=== PATIENT | male | born 1990 | race Caucasian/White ===

== ENCOUNTER 2018-10-26 10:44 | Emergency (ER) | payer BC ==
[2018-10-26 10:54] VITALS: BP 115/77
[2018-10-26 11:20] LABS: Influenza A Molecular NEGATIVE (Negative); Influenza B Molecular NEGATIVE (Negative)
--- NOTE | 2018-10-26 11:35 | UC ---
Throat Pain/Nasal Shankar HPI - HPI Summary HPI Summary: 28 year old male with PMH + for ADHD, on HTN medicatino due to med side effect, presents with cough, nasal congestion 2 days ago, fever x 2 days tmax 101, decreased appetite, no N/V/ D, no prior illnesses, denies GI upset. + neck pain but chronic for patient, does not feel made worse. no SOB. 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 - Onset/Duration: Sudden Onset, Lasting Days Severity: Moderate Pain Intensity: 4 Pain Scale Used: 0-10 Numeric Cough: Productive Associated Signs & Symptoms: Positive: Sinus Discomfort, Nasal Discharge, Fever - Allergies/Home Medications Allergies/Adverse Reactions: Allergies Allergy/AdvReac Type Severity Reaction Status Date / Time acetaminophen [From Vicodin] Allergy Flushing Verified 10/26/18 10:54 hydrocodone [From Vicodin] Allergy Flushing Verified 10/26/18 10:54 hydromorphone [From Dilaudid] Allergy Flushing Verified 10/26/18 10:54 morphine Allergy burning Verified 10/26/18 10:54 sensation Home Medications: Home Medications Adderall 20 mg Tablet 20 mg PO DAILY 10/26/18 [History Confirmed 10/26/18] Lisinopril TAB* [Prinivil TAB 10 MG*] 10 mg PO DAILY 10/26/18 [History Confirmed 10/26/18] PMH/Surg Hx/FS Hx/Imm Hx Previously Healthy: Yes - Surgical History Surgical History: Yes Surgery Procedure, Year, and Place: tonsilectomy - Family History Known Family History: Positive: Unknown, Cardiac Disease - GRANDMOTHER - [place] - Social History Alcohol Use: Occasionally Alcohol Amount: 1 GLASS WINE TONIGHT Substance Use Type: None Smoking Status (MU): Never Smoked Tobacco Review of Systems All Other Systems Reviewed And Are Negative: Yes Constitutional: Positive: Fever, Chills, Fatigue Skin: Positive: Negative Eyes: Positive: Negative ENT: Positive: Nasal Discharge, Sinus Congestion, Sinus Pain/Tenderness Respiratory: Positive: Cough Cardiovascular: Positive: Negative Gastrointestinal: Positive: Negative Genitourinary: Positive: Negative Motor: Positive: Negative Neurovascular: Positive: Negative Musculoskeletal: Positive: Negative Neurological: Positive: Negative Psychological: Positive: Anxious Is Patient Immunocompromised?: No Physical Exam Triage Information Reviewed: Yes Appearance: No Pain Distress, Well-Nourished, Ill-Appearing - modeate Vital Signs: Initial Vital Signs Temp 99 F 10/26/18 10:50 Pulse 100 10/26/18 10:50 Resp 20 10/26/18 10:50 BP 115/77 10/26/18 10:50 Pulse Ox 97 10/26/18 10:50 Vital Signs Reviewed: Yes Eyes: Positive: Conjunctiva Clear ENT: Positive: Pharynx normal, TMs normal - mild fluid behind TMs, no redness, Sinus tenderness - fraontal, Uvula midline. Negative: Tonsillar swelling, Tonsillar exudate Neck: Positive: Supple, Nontender, Enlarged Nodes @ - submand b/l. Negative: Nuchal Rigidity Respiratory: Positive: Chest non-tender, Lungs clear, Normal breath sounds, No respiratory distress, No accessory muscle use. Negative: Crackles, Rhonchi, Stridor, Wheezing Cardiovascular: Positive: RRR, No Murmur Neurological Exam: Normal Psychological Exam: Normal Skin Exam: Normal Throat Pain/Nasal Course/Dx - Course Course Of Treatment: rapid flu negative. antibiotics for sinusitis, symptomatic treatment - Differential Dx/Diagnosis Differential Diagnosis/HQI/PQRI: Sinusitis Provider Diagnosis: Sinusitis Discharge - Sign-Out/Discharge Documenting (check all that apply): Patient Departure All imaging exams completed and their final reports reviewed: No Studies - Discharge Plan Condition: Good Disposition: HOME Prescriptions: Azithromyxin BEATRIZ (NF) [Z-Beatriz (Zithromax) 250 mg tabs #6] 2 tab PO .TODAY, THEN 1 DAILY #6 tab Patient Education Materials: Sinusitis (ED) Referrals: Linette Kay PA [Primary Care Provider] - Additional Instructions: - Increase fluid intake - Humidifier at night to help with cough - Over the counter cough medication as needed - Over the counter/ Antihistamines for congestion - Motrin/ ibuprofen as needed for headache/ body aches - Antibiotics as prescribed - God hygiene to prevent spread - Billing Disposition and Condition Condition: GOOD Disposition: Home
== END 2018-10-26 11:35 | disposition home or self-care (01) ==
LOC: UCEAST 10:44
DX: J32.9 Chronic sinusitis, unspecified (principal); I10 Essential (primary) hypertension; F90.9 Attention-deficit hyperactivity disorder, unspecified type; Z88.5 Allergy status to narcotic agent; Z88.8 Allergy status to other drugs, medicaments and biological substances; Z79.899 Other long term (current) drug therapy
CPT/HCPCS: 99212; G0463

== ENCOUNTER 2024-03-29 19:00 | Inpatient (IN) ==
[2024-03-29 20:03] LABS: ABS Eosinophils 0.1 10^3/uL (0.0-0.5); ABS Lymphocytes 2.2 10^3/uL (1.0-4.8); ABS Monocytes 0.9 10^3/uL (0.0-1.1); ABS Nucleated RBC 0.01 10^3/ul; Hematocrit 44.4 % (38-53); Hemoglobin 15.1 g/dL (13.2-16.3); Lymphocyte % 26.4 %; Mean Corpuscular Hemoglobin 30.2 pg (27-33); Mean Corpuscular Hgb Conc 34.1 g/dL (31-36); Mean Corpuscular Volume 88.7 fL (80-97); Mean Platelet Volume 9.4 fL (7.5-11.2); Nucleated Red Blood Cells % 0.1 %/100WBC (0.0-0.8); Platelet Count 248 10^3/uL (150-450); Red Cell Distribution Width 12.9 % (12-17); White Blood Count 8.2 10^3/uL (3.6-10.2)
[2024-03-29 20:55] LABS: Albumin 4.6 g/dL (3.2-5.2); Albumin/Globulin Ratio 1.8 (1-3); C Reactive Protein 8.78 mg/L (<8.01); Calcium 9.5 mg/dL (8.6-10.3); Creatinine, Serum 1.18 mg/dL (0.67-1.17); Globulin 2.6 g/dL (2-4); Potassium 4.2 mmol/L (3.5-5.0); Total Bilirubin 0.6 mg/dL (0.2-1.0); Total Protein 7.2 g/dL (6.4-8.9); eGFR CKD-EPI 84.1 (>60)
[2024-03-29] MEDS: Lactated Ringers 1000 ml BAG 1,000 ML IV ONE (23:38)
[2024-03-29] MEDS: fentaNYL 100 mcg/2 ml 50 MCG/ML VIAL IV SLOW PU ONE (23:38)
[2024-03-29] MEDS: Ondansetron 4 mg VIAL 2 MG/ML 2 ml VIAL IV ONE (23:38)
[2024-03-30 00:01] LABS: Urine Appearance Clear; Urine Bilirubin Negative (Negative); Urine Blood Negative (Negative); Urine Color Yellow; Urine Glucose Negative (Negative); Urine Ketones Negative (Negative); Urine Nitrite Negative (Negative); Urine Protein Trace (Negative); Urine Specific Gravity 1.037 (1.002-1.030); Urine Urobilinogen Negative (Negative)
[2024-03-30] MEDS: Iohexol 300 (CONTRAST) 10 ML SDV IV ONE (00:40)
[2024-03-30] MEDS: Lactated Ringers 1000 ml BAG 1,000 ML IV ONE (04:12)
[2024-03-30] MEDS: Ondansetron 4 mg VIAL 2 MG/ML 2 ml VIAL IV ONE (04:12)
[2024-03-30] MEDS ORDERED: Ondansetron 4 mg VIAL 2 MG/ML 2 ml VIAL IV PRN (05:30)
[2024-03-30] MEDS: Lactated Ringers 1000 ml BAG 1,000 ML IV SCH ×2 (06:10→12:18)
[2024-03-30 08:55] LABS: ABS Eosinophils 0.1 10^3/uL (0.0-0.5); ABS Lymphocytes 1.7 10^3/uL (1.0-4.8); ABS Monocytes 0.7 10^3/uL (0.0-1.1); ABS Neutrophils 5.4 10^3/uL (1.5-7.6); ABS Nucleated RBC 0.01 10^3/ul; Eosinophil % 1.2 %; Hematocrit 38.8 % (38-53); Hemoglobin 13.6 g/dL (13.2-16.3); Lymphocyte % 21.8 %; Mean Corpuscular Hemoglobin 30.9 pg (27-33); Mean Corpuscular Hgb Conc 35.1 g/dL (31-36); Mean Corpuscular Volume 88.1 fL (80-97); Mean Platelet Volume 9.3 fL (7.5-11.2); Nucleated Red Blood Cells % 0.1 %/100WBC (0.0-0.8); Platelet Count 195 10^3/uL (150-450); Red Cell Distribution Width 12.7 % (12-17); White Blood Count 7.9 10^3/uL (3.6-10.2)
[2024-03-30 09:30] LABS: Calcium 8.5 mg/dL (8.6-10.3); Creatinine, Serum 1.02 mg/dL (0.67-1.17); Potassium 4.5 mmol/L (3.5-5.0); eGFR CKD-EPI 100.1 (>60)
[2024-03-30] MEDS: Pantoprazole VIAL 40 MG VIAL IV SCH (10:34)
[2024-03-30] MEDS: Lisdexamfetamine 10 mg CAP(NF) PO SCH (10:34)
[2024-03-30] MEDS: Fluticasone NASAL SPRAY 50MCG 16 gm SPRAY BTL INTRANASAL SCH (10:56)
[2024-03-30] MEDS: Psyllium PAK PO PRN (18:26)
[2024-03-31 05:07] LABS: ABS Eosinophils 0.1 10^3/uL (0.0-0.5); ABS Lymphocytes 1.5 10^3/uL (1.0-4.8); ABS Monocytes 0.5 10^3/uL (0.0-1.1); ABS Neutrophils 3.2 10^3/uL (1.5-7.6); Eosinophil % 1.5 %; Hematocrit 35.7 % (38-53); Hemoglobin 12.4 g/dL (13.2-16.3); Lymphocyte % 28.4 %; Mean Corpuscular Hemoglobin 30.5 pg (27-33); Mean Corpuscular Hgb Conc 34.8 g/dL (31-36); Mean Corpuscular Volume 87.5 fL (80-97); Mean Platelet Volume 9.3 fL (7.5-11.2); Platelet Count 178 10^3/uL (150-450); Red Blood Count 4.08 10^6/uL (4.06-5.63); Red Cell Distribution Width 12.3 % (12-17); White Blood Count 5.3 10^3/uL (3.6-10.2)
[2024-03-31 05:29] LABS: Calcium 8.4 mg/dL (8.6-10.3); Creatinine, Serum 1.02 mg/dL (0.67-1.17); Magnesium 1.9 mg/dL (1.9-2.7); Potassium 4.6 mmol/L (3.5-5.0); eGFR CKD-EPI 100.1 (>60)
[2024-03-31] MEDS: Magnesium Sulfate IV 1GM/100ML 1 GM/100 ML BAG IV ONE (09:28)
[2024-03-31] MEDS: Lidocaine PATCH 5% PATCH TRANSDERM SCH (11:53)
[2024-04-01 09:54] VITALS: BP 144/99
== END 2024-04-01 13:55 | disposition home or self-care (01) | DRG 249 ==
LOC: ED 19:00 → EDHOLD 19:00 → SUATTDRO 03-30 04:15 → SSU 03-30 04:58
PROVIDERS: ADMIT Internal Medicine; ATTEND Internal Medicine